=== PATIENT | female | born 1985 | race Caucasian/White ===

== ENCOUNTER 2016-12-23 16:32 | Emergency (ER) | payer SELFPAY ==
--- NOTE | 2016-12-23 18:33 | ED ---
Lower Extremity - HPI Summary HPI Summary: Patient with a history of PFS with a CC of left knee "pop" on Monday with tingling/numbness and remains with pain. She has had similar episodes, but never with knee pain or numbness/tingling which has lasted this long. She feels maybe the patella had moved and it is not placed well on the knee, which is making the feeling of pain. She denies other pain. Patient is obese and states she has always had "bad knees." Numbness and tingling are located in the foot medially and remains constant. She denies temperature or color changes. - History of Current Complaint Chief Complaint: EDExtremityLower Stated Complaint: LT KNEE INJURY Time Seen by Provider: 12/23/16 17:52 Hx Obtained From: Patient Mechanism Of Injury: Twisted Onset of Pain: Immediate Onset/Duration: Days Severity Initially: Moderate Severity Currently: Moderate Pain Intensity: 4 Pain Scale Used: 0-10 Numeric Timing: Constant Location: Is Discrete @ - medial and lateral left knee pain Character Of Pain: Aching Associated Signs And Symptoms: Positive: Weakness Aggravating Factor(s): Ambulation, Weight Bearing Alleviating Factor(s): Rest Able to Bear Weight: Yes - Risk Factors Gout Risk Factors: Obesity DVT Risk Factors: Negative Septic Arthritis Risk Factor: Negative - Allergies/Home Medications Allergies/Adverse Reactions: Allergies Allergy/AdvReac Type Severity Reaction Status Date / Time Erythromycin [From Pediazole] Allergy Hives Verified 12/23/16 19:17 Penicillins [PCN] Allergy Hives Verified 12/23/16 19:17 Sulfamethoxazole Allergy Hives Verified 12/23/16 19:17 w/Trimethoprim [From Bactrim] Sulfisoxazole Allergy Hives Verified 12/23/16 19:17 [From Pediazole] PMH/Surg Hx/FS Hx/Imm Hx Previously Healthy: Yes - Immunization History Hx Pertussis Vaccination: No Immunizations Up to Date: Yes Infectious Disease History: No Infectious Disease History: Denies: Traveled Outside the [place] in Last 30 Days - Social History Occupation: Employed Full-time Lives: With Family Alcohol Use: Rare Hx Substance Use: No Substance Use Type: Reports: None Hx Tobacco Use: No Smoking Status (MU): Never Smoked Tobacco Do You Chew or Dip Tobacco: No Review of Systems Constitutional: Negative Cardiovascular: Negative Respiratory: Negative Positive: no symptoms reported, see HPI Positive: Arthralgia - left knee pain over medial and lateral aspect, Myalgia Skin: Negative Neurological: Negative Psychological: Normal All Other Systems Reviewed And Are Negative: Yes Physical Exam Triage Information Reviewed: Yes Vital Signs On Initial Exam: Initial Vitals Temp Pulse Resp BP Pulse Ox 97.8 F 72 16 129/67 100 12/23/16 16:35 12/23/16 16:35 12/23/16 16:35 12/23/16 16:35 12/23/16 16:35 Vital Signs Reviewed: Yes Appearance: Positive: Well-Appearing, No Pain Distress, Well-Nourished Skin: Positive: Warm, Skin Color Reflects Adequate Perfusion Head/Face: Positive: Normal Head/Face Inspection Neck: Positive: Supple, No Lymphadenopathy Cardiovascular: Positive: Normal, RRR, Pulses are Symmetrical in both Upper and Lower Extremities Musculoskeletal: Positive: Limited @ - flexion and extension, Pain @ - medial, lateral and anterior aspect of knee, Other - no edema. patellar tendon palpation reveals pain, petallar glide does not demonstrate hypermobility, apprehension test does not demonstrate subluxation. anterior drawer negative. Neurological: Positive: Alert, Oriented to Person Place, Time, CN Intact II-III , Facial Symmetry, Speech Normal Psychiatric: Positive: Normal AVPU Assessment: Alert Diagnostics - Vital Signs Vital Signs Temp Pulse Resp BP Pulse Ox 12/23/16 16:38 98.5 F 76 20 129/67 100 12/23/16 16:35 97.8 F 72 16 129/67 100 - Laboratory Lab Statement: Any lab studies that have been ordered have been reviewed, and results considered in the medical decision making process. Lower Extremity Course/Dx - Course Course Of Treatment: Patient sent to xray d/t numbness/tingling and feeling patella out of place. Hx of PFS. Previous subluxation of the knee, but never has felt tingling or pain after incident. Will refer to Dr. Mata for follow up if symptoms persist and possibly physical therapy. Aaron wrapped. Patient is OK for discharge. She is still concerned over the numbness and tingling, but reassured it is d/t injury. No color or temperature changes noted bilaterally and +2 pulses intact. - Diagnoses Differential Diagnosis/HQI/PQRI: Positive: Dislocation, Fracture (Closed), Sprain, Strain Provider Diagnoses: Knee strain Discharge - Discharge Plan Condition: Stable Disposition: HOME Patient Education Materials: Knee Pain (ED) Referrals: Non Staff,Doctor [Primary Care Provider] - Additional Instructions: There is no way to tell if the ligaments are strained or there is any tears. This would require further imaging. Follow up with Dr. Mata if symptoms persist. Ibuprofen 600mg three times daily with meals. Use aaron wrap for stabilization. Remain ambulatory to prevent stiffness. Ice for 2 days, then switch to heat. If you notice any color or temperature changes in the foot, come back to ED.
--- NOTE | 2016-12-23 19:20 | RAD ---
HISTORY: Left knee pain with numbness and tingling COMPARISONS: None VIEWS: 5, Frontal, lateral, axial, and oblique views of the left knee FINDINGS: BONE DENSITY: Normal. BONES: There is no displaced fracture. JOINTS: There is no arthropathy. There is no suprapatellar joint effusion or lipohemarthrosis. ALIGNMENT: There is no dislocation. SOFT TISSUES: Unremarkable. OTHER FINDINGS: None. IMPRESSION: NO ACUTE OSSEOUS INJURY. IF SYMPTOMS PERSIST, RECOMMEND REPEAT IMAGING.
[2016-12-23 19:43] VITALS: BP 114/72
== END 2016-12-23 19:42 | disposition home or self-care (01) ==
LOC: ED 16:32
DX: S83.92XA Sprain of unspecified site of left knee, initial encounter (principal); X58.XXXA Exposure to other specified factors, initial encounter; Y92.9 Unspecified place or not applicable; E66.9 Obesity, unspecified; Z88.0 Allergy status to penicillin; Z88.2 Allergy status to sulfonamides; Z68.44 Body mass index [BMI] 60.0-69.9, adult
CPT/HCPCS: 99281

== ENCOUNTER 2017-08-12 18:29 | Emergency (ER) | payer BC ==
[2017-08-12 18:48] VITALS: BP 121/72
--- NOTE | 2017-08-12 20:54 | UC ---
Damir Byrnes Thomas, scribed for John Riley MD on 08/12/17 at 1905 . UC General HPI - HPI Summary HPI Summary: The patient is a 32 year old female presenting to Urgent Care complaining of numbness and tingling on her right-sided lip, right hand, and right side of the right lower extremity that began five days ago. She describes a sensation of pins and needles. The patient has been in contact with her primary care physician, who suspects that the patients symptoms are a result of a B12 deficiency and the patients metformin. Earlier today, the patient had new- onset right knee tightness and weakness in her right knee. - History of Current Complaint Chief Complaint: UCGeneralIllness Stated Complaint: TINGLING SENSATIONS,MOUTH,ARM,LEGS Time Seen by Provider: 08/12/17 18:57 Hx Obtained From: Patient Hx Last Menstrual Period: 08/12/17 Onset/Duration: Lasting Days - 5, Still Present Timing: Constant Current Severity: Moderate Aggravating: None Alleviating: None Associated Signs & Symptoms: Positive: Weakness, Other - Numbness, tingling - Allergy/Home Medications Allergies/Adverse Reactions: Allergies Allergy/AdvReac Type Severity Reaction Status Date / Time Erythromycin [From Pediazole] Allergy Hives Verified 08/12/17 20:35 Penicillins [PCN] Allergy Hives Verified 08/12/17 20:35 Sulfamethoxazole Allergy Hives Verified 08/12/17 20:35 w/Trimethoprim [From Bactrim] Sulfisoxazole Allergy Hives Verified 08/12/17 20:35 [From Pediazole] Home Medications: Home Medications Cholecalciferol [Vitamin D] 1,000 unit PO EVERY OTHER DAY 08/12/17 [History Confirmed 08/12/17] Cyanocobalamin [Vitamin B-12] 5,000 mcg PO DAILY 08/12/17 [History Confirmed ] Fexofenadine (NF) [Melissa 180 (NF)] 180 mg PO DAILY 08/12/17 [History Confirmed 08/12/17] Levothyroxine TAB* [Synthroid TAB*] 75 mcg PO DAILY 08/12/17 [History Confirmed 08/12/17] Magnesium Oxide (mg Supplement [Magnesium] 500 mg PO DAILY 08/12/17 [History Confirmed 08/12/17] metFORMIN* [Glucophage 500 MG TAB *] 500 mg PO DAILY 08/12/17 [History Confirmed 08/12/17] PMH/Surg Hx/FS Hx/Imm Hx Previously Healthy: No - Asthma; NEGATIVE: DM - Surgical History Surgical History: None - Family History Known Family History: Positive: Hypertension, Other - Skin cancer - Social History Alcohol Use: Occasionally Substance Use Type: None Smoking Status (MU): Never Smoked Tobacco - Immunization History Most Recent Influenza Vaccination: never Review of Systems Constitutional: Other - NEGATIVE: fever Musculoskeletal: Other: Neurological: Weakness, Numbness, Other - Tingling Is Patient Immunocompromised?: No All Other Systems Reviewed And Are Negative: Yes Physical Exam Triage Information Reviewed: Yes Vital Signs: Initial Vital Signs Temp 98.6 F 08/12/17 18:41 Pulse 71 08/12/17 18:41 Resp 18 08/12/17 18:41 BP 121/72 08/12/17 18:41 Pulse Ox 98 08/12/17 18:41 Vital Signs Reviewed: Yes - Additional Comments VITAL SIGNS: Reviewed. GENERAL: Patient is a morbidly obese female who is lying comfortable in the stretcher. Patient is not in any acute respiratory distress. HEAD AND FACE: Normocephalic EYES: PERRLA, EOMI x 2. EARS: Hearing grossly intact. MOUTH: Oropharynx within normal limits. NECK: Supple, trachea is midline, no adenopathy, no JVD, no carotid bruit. CHEST: Symmetric, no tenderness at palpation LUNGS: Clear to auscultation bilaterally. No wheezing or crackles. CVS: Regular rate and rhythm, S1 and S2 present, no murmurs or gallops appreciated. ABDOMEN: Soft, non-tender. Bowel sounds are normal. No abdominal abnormal pulsations. EXTREMITIES: Full ROM in all major joints, no edema, no cyanosis or clubbing. NEURO: Alert and oriented x 3. Speech is normal and follows commands. She has right-sided tingling and numbness. She had one episode of weakness today in her right lower extremity. SKIN: Dry and warm Course/Dx - Course Course Of Treatment: The patient is a 32 year old female presenting to Urgent Care complaining of numbness and tingling on her right-sided lip, right hand, and right side of the right lower extremity that began five days ago. She describes a sensation of pins and needles. The patient has been in contact with her primary care physician, who suspects that the patients symptoms are a result of a B12 deficiency and the patients metformin. Earlier today, the patient had new-onset right knee tightness and weakness in her right knee. She has right-sided tingling and numbness. She had one episode of weakness today in her right lower extremity. I will send the patient to the emergency department for further evaluation to rule out any electrolyte abnormalities since the patient reports similar symptoms in the past due to B-12 deficiency. I have low suspicion for CVA since the patients neurological exam was intact except for decreased sensation on the right side. She will be discharged to travel to the emergency department by private car. - Differential Dx - Multi-Symptom Provider Diagnoses: Neuropathy Discharge - Discharge Plan Condition: Stable Disposition: OTHER Discharge Disposition Comment: Patient instructed to travel to the emergency department by private car. Patient Education Materials: Peripheral Neuropathy (ED) Referrals: Michelle Moreno MD [Primary Care Provider] - Additional Instructions: GO IMMEDIATELY TO THE [facility] EMERGENCY DEPARTMENT. The documentation as recorded by the Damir mcmanus Thomas accurately reflects the service I personally performed and the decisions made by me, John Riley MD.
== END 2017-08-12 19:12 ==
LOC: UCEAST 18:29
DX: G62.9 Polyneuropathy, unspecified (principal); E66.01 Morbid (severe) obesity due to excess calories; Z88.3 Allergy status to other anti-infective agents; Z88.0 Allergy status to penicillin; Z79.84 Long term (current) use of oral hypoglycemic drugs
CPT/HCPCS: 99212; G0463

== ENCOUNTER 2017-08-12 19:28 | Emergency (ER) | payer BC ==
--- NOTE | 2017-08-12 21:45 | RAD ---
Indication: Right chin and hand numbness. Headaches. CT of the brain was performed without IV contrast. Ventricular structures are midline. No midline shift is noted. The extra-axial spaces are unremarkable. There is no evidence of intraluminal mass or hemorrhage. No other high or low density lesions are identified. Mastoid air cells and paranasal sinuses are otherwise unremarkable. IMPRESSION: No intracranial mass or hemorrhage is noted.
--- NOTE | 2017-08-12 21:48 | RAD ---
Indication: Right hand numbness. CT of the cervical spine was obtained in the axial plane. Sagittal and coronal reconstructed images were obtained. Skull base demonstrates no evidence of fracture. Mastoid air cells are well aerated. C1 ring is intact. There is no evidence of fracture. The vertebral bodies appear normal in height and alignment. Evaluation of the soft tissues including the disc spaces and spinal canal is limited due to patient's body habitus. IMPRESSION: No obvious fracture or malalignment is noted although the study is extremely limited due to patient's body habitus. Thyroid nodules are noted.
--- NOTE | 2017-08-12 21:52 | RAD ---
Indication: Back pain. Leg weakness. CT of the lumbar spine was obtained in the axial plane. Sagittal and coronal reconstructed images were obtained. The vertebral bodies appear normal in height and alignment. No compression fracture is noted. There is no evidence of any disc protrusion is noted in the disc spaces. All the intervertebral foramen appear widely patent. At L5-S1 there may be minimal disc protrusion noted. IMPRESSION: No fracture of the lumbar spine. There may BE minimal central broad-based protrusion flattening the thecal sac at the L5-S1 level.
[2017-08-12] MEDS ORDERED: Acetaminophen TAB* 325 MG PO ONE (22:42)
[2017-08-12 23:19] LABS: Hematocrit 38 % (35-47); Hemoglobin 12.7 g/dl (12.0-16.0); Mean Corpuscular HGB Conc 34 g/dl (31-36); Mean Corpuscular Hemoglobin 30 pg (27-31); Mean Corpuscular Volume 88 fL (80-97); Mean Platelet Volume 9 um3 (7.4-10.4); Red Blood Count 4.27 10^6/ul (4.0-5.4); Red Cell Distribution Width 14 % (10.5-15); White Blood Count 9.2 10^3/ul (3.5-10.8)
[2017-08-12 23:34] LABS: Albumin 3.8 g/dL (3.2-5.2); BUN/Creatinine Ratio 21.7 (8-20); C Reactive Protein 14.3 mg/L (< 5.00); EGFR African American 128.5 (>60); EGFR Non-African American 99.9 (>60); Potassium 3.9 mmol/L (3.5-5.0); Total Bilirubin 0.2 mg/dL (0.2-1.0); Total Protein 6.8 g/dL (6.4-8.9)
[2017-08-13 00:12] LABS: Erythrocyte Sed Rate 34 mm/Hr (0-14)
--- NOTE | 2017-08-13 00:17 | ED ---
Jamar Byrnes Natalie, scribed for Michael Meadows MD on 08/12/17 at 205 . Neurological HPI - HPI Summary HPI Summary: The pt is a 32 y/o F presenting to the ED c/o tingling in body onset 5 days ago. The tingling is in right lip, right hand/fingers, entire right and lower left lower extremities. She called her PCP, Michelle Moreno, who said pt may not be absorbing her B12 supplement. The patient also had right knee tightness this morning while walking upstairs, where he knee felt like it was buckling. About 30 minutes later, the pain started in her right knee. The pain is aggravated by nothing and is alleviated by nothing. 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 Pt additionally c/o migraine, right LE weakness, and limping on right LE. Pt denies sore throat and back pain. The patient takes Vitamin D supplement, Magnesium supplement, B12 supplement, control, Melissa, Levothyroxine, Metformin, Symbicort, and Ventolin. - History of Current Complaint Chief Complaint: EDNeurologicalDeficit Stated Complaint: RIGHT SIDED TINGLING, WEAKNESS/PAIN Time Seen by Provider: 08/12/17 20:27 Hx Obtained From: Patient Hx Last Menstrual Period: 08/12/17 Onset/Duration: Sudden Onset, Started days ago Timing: Constant Pain Intensity: 6 Pain Scale Used: 0-10 Numeric Character: Numbness/Tingling - in right lip, entire RLE, LLE, right hand Aggravating: Nothing Alleviating: Nothing Associated Signs and Symptoms: Positive: Negative - NEGATIVE: sore throat, Unsteady Gait, Headache, Weakness. Negative: Pain - POSITIVE: right knee pain; NEGATIVE: back pain - Allergy/Home Medications Allergies/Adverse Reactions: Allergies Allergy/AdvReac Type Severity Reaction Status Date / Time Erythromycin [From Pediazole] Allergy Hives Verified 08/12/17 20:35 Penicillins [PCN] Allergy Hives Verified 08/12/17 20:35 Sulfamethoxazole Allergy Hives Verified 08/12/17 20:35 w/Trimethoprim [From Bactrim] Sulfisoxazole Allergy Hives Verified 08/12/17 20:35 [From Pediazole] PMH/Surg Hx/FS Hx/Imm Hx Previously Healthy: No Endocrine/Hematology History: Reports: Hx Diabetes - pre-diabetic, Hx Thyroid Disease Opthamlomology History: Denies: Hx Legally Blind EENT History: Denies: Hx Deafness - Immunization History Date of Tetanus Vaccine: unk Date of Influenza Vaccine: unk Infectious Disease History: No Infectious Disease History: Denies: Traveled Outside the [place] in Last 30 Days - Family History Known Family History: Positive: Hypertension, Diabetes - Social History Alcohol Use: Occasionally Hx Substance Use: No Substance Use Type: Reports: None Hx Tobacco Use: No Smoking Status (MU): Never Smoked Tobacco Review of Systems Negative: Sore Throat Positive: Other - NEGATIVE: back pain Neurological: Other - tingling in right lip, right hand, RLE, LLE Positive: Headache, Weakness All Other Systems Reviewed And Are Negative: Yes Physical Exam Triage Information Reviewed: Yes Vital Signs On Initial Exam: Initial Vitals Temp Pulse Resp BP Pulse Ox 97.3 F 73 18 133/70 98 08/12/17 19:31 08/12/17 19:31 08/12/17 19:31 08/12/17 19:31 08/12/17 19:31 Vital Signs Reviewed: Yes Appearance: Positive: Well-Appearing, No Pain Distress Skin: Positive: Warm, Skin Color Reflects Adequate Perfusion, Dry Head/Face: Positive: Normal Head/Face Inspection Eyes: Positive: EOMI, KEVEN ENT: Positive: Normal ENT inspection Respiratory/Lung Sounds: Positive: Clear to Auscultation, Breath Sounds Present Cardiovascular: Positive: RRR Abdomen Description: Positive: Nontender, Soft Bowel Sounds: Positive: Present Musculoskeletal: Positive: Normal, Strength/ROM Intact - no decreased stregnth in upper or lower extremities found on exam, Other - back and neck are nontender to palpitation Neurological: Positive: Normal, Alert, Oriented to Person Place, Time, Other - reported decreased sensation in right lateral thigh, lower leg below knee, right hand Psychiatric: Positive: Affect/Mood Appropriate - [place] Coma Scale Coma Scale Total: 15 Diagnostics - Vital Signs Vital Signs Temp Pulse Resp BP Pulse Ox 08/12/17 19:31 97.3 F 73 18 133/70 98 - Laboratory Lab Results: Lab Results 08/12/17 08/12/17 08/12/17 Range/Units 22:42 22:42 22:42 WBC 9.2 (3.5-10.8) 10^3/ul RBC 4.27 (4.0-5.4) 10^6/ul Hgb 12.7 (12.0-16.0) g/dl Hct 38 (35-47) % MCV 88 (80-97) fL MCH 30 (27-31) pg MCHC 34 (31-36) g/dl RDW 14 (10.5-15) % Plt Count 283 (150-450) 10^3/ul MPV 9 (7.4-10.4) um3 Neut % (Auto) 53.6 (38-83) % Lymph % (Auto) 35.6 (25-47) % Alexander % (Auto) 6.2 (1-9) % Eos % (Auto) 3.9 (0-6) % Baso % (Auto) 0.7 (0-2) % Absolute Neuts (auto) 4.9 (1.5-7.7) 10^3/ul Absolute Lymphs (auto) 3.3 (1.0-4.8) 10^3/ul Absolute Monos (auto) 0.6 (0-0.8) 10^3/ul Absolute Eos (auto) 0.4 (0-0.6) 10^3/ul Absolute Basos (auto) 0.1 (0-0.2) 10^3/ul Absolute Nucleated RBC 0 10^3/ul Nucleated RBC % 0 ESR 34 H (0-14) mm/Hr INR (Anticoag Therapy) 0.92 (0.77-1.02) APTT 27.5 (26.0-36.3) seconds Sodium 136 (133-145) mmol/L Potassium 3.9 (3.5-5.0) mmol/L Chloride 105 (101-111) mmol/L Carbon Dioxide 24 (22-32) mmol/L Anion Gap 7 (2-11) mmol/L BUN 15 (6-24) mg/dL Creatinine 0.69 (0.51-0.95) mg/dL Est GFR ( Amer) 128.5 (>60) Est GFR (Non-Af Amer) 99.9 (>60) BUN/Creatinine Ratio 21.7 H (8-20) Glucose 94 (70-100) mg/dL Calcium 9.0 (8.6-10.3) mg/dL Total Bilirubin 0.20 (0.2-1.0) mg/dL AST 11 L (13-39) U/L ALT 10 (7-52) U/L Alkaline Phosphatase 62 (34-104) U/L C-Reactive Protein 14.30 H (< 5.00) mg/L Total Protein 6.8 (6.4-8.9) g/dL Albumin 3.8 (3.2-5.2) g/dL Globulin 3.0 (2-4) g/dL Albumin/Globulin Ratio 1.3 (1-3) Beta HCG, Quant 0.84 mIU/mL Result Diagrams: 08/12/17 22:42 08/12/17 22:42 Lab Statement: Any lab studies that have been ordered have been reviewed, and results considered in the medical decision making process. - CT Brain CT CT Interpretation: No Acute Changes - No intracranial mass or hemorrhage is noted. ED physician has reviewed this report. CT Interpretation Completed By: Radiologist Cervical Spine CT CT Interpretation: No Acute Changes CT Interpretation Completed By: Radiologist - No obvious fracture or malalignment is noted although the study is extremely limited due to patient's body habitus. Thyroid nodules are noted. ED physician has reviewed this report. Lumbar Spine CT CT Interpretation: No Acute Changes - No fracture of the lumbar spine. There may BE minimal central broad-based protrusion flattening the thecal sac at the L5-S1 level. ED physician has reviewed this report. Course/Dx - Course Course Of Treatment: BP noted and advised to follow up with PCP. Allergies noted. Medications reviewed. NO FOCAL WEAKNESS ON EXAM. DISCUSSED WITH NEUROLOGY, DR MOSQUEDA. THE PLAN IS EVALUATE WITH CT AND OBTAIN LABS NOW AND. F /U WITH PMD/NEUROLOGY ON 08/15/17 FOR PROBABLE OUT PATIENT MRI. RETURN TO ED IF WORSE/NEUROLOGIC DEFICIT. MAY REQUIRE MRI URGENTLY IF SX WORSEN. - Diagnoses Provider Diagnoses: Paresthesia, Right knee pain Discharge - Discharge Plan Condition: Stable Disposition: HOME Patient Education Materials: Paresthesia (ED), Knee Pain (ED) Forms: *Work Release Referrals: Michelle Moreno MD [Primary Care Provider] - Additional Instructions: FOLLOW UP WITH YOUR PRIMARY CARE DOCTOR AND NEUROLOGY, DR MOSQUEDA. RETURN TO THE EMERGENCY DEPARTMENT FOR ANY WORSENING OF YOUR CONDITION; WEAKNESS , NUMBNESS, DIFFICULTY CONTROLLING BOWEL OR BLADDER OR QUESTIONS OR CONCERNS. The documentation as recorded by the Jamar mcmanus Natalie accurately reflects the service I personally performed and the decisions made by me, Michael Meadows MD.
[2017-08-13 01:03] VITALS: BP 137/67
== END 2017-08-13 00:50 | disposition home or self-care (01) ==
LOC: ED 19:28
DX: R20.2 Paresthesia of skin (principal); M25.561 Pain in right knee; Z88.3 Allergy status to other anti-infective agents; Z88.0 Allergy status to penicillin; Z88.2 Allergy status to sulfonamides
CPT/HCPCS: 36415; 70450; 72125; 72131; 80053; 84702; 85025; 85610; 85652; 85730; 86038; 86140; 86618; 99282; A9270-GY

== ENCOUNTER 2018-01-23 15:48 | Emergency (ER) | payer BC ==
[2018-01-23 17:10] LABS: ABS Basophils 0.1 10^3/ul (0-0.2); ABS Eosinophils 0.3 10^3/ul (0-0.6); ABS Lymphocytes 2.7 10^3/ul (1.0-4.8); ABS Monocytes 0.5 10^3/ul (0-0.8); ABS Neutrophils 7.4 10^3/ul (1.5-7.7); ABS Nucleated RBC 0 10^3/ul; Eosinophil % 2.3 % (0-6); Hematocrit 38 % (35-47); Hemoglobin 12.9 g/dl (12.0-16.0); Lymphocyte % 24.3 % (25-47); Mean Corpuscular HGB Conc 34 g/dl (31-36); Mean Corpuscular Hemoglobin 30 pg (27-31); Mean Corpuscular Volume 88 fL (80-97); Mean Platelet Volume 8.5 um3 (7.4-10.4); Nucleated Red Blood Cells % 0; Platelet Count 265 10^3/ul (150-450); Red Blood Count 4.33 10^6/ul (4.0-5.4); Red Cell Distribution Width 14 % (10.5-15); White Blood Count 10.9 10^3/ul (3.5-10.8)
[2018-01-23 17:27] LABS: EGFR Non-African American 96.7 (>60)
--- NOTE | 2018-01-23 17:29 | RAD ---
Indication: Chest pain. 2 views of the chest including dual energy PA views demonstrates no mediastinal shift. Heart is of normal size and configuration. Lung meza are clear. IMPRESSION: No active cardiopulmonary disease is noted.
[2018-01-23] MEDS ORDERED: Iodixanol* (CONTRAST) 320 MG/ML 100 ML SDV IV ONE (18:31)
--- NOTE | 2018-01-23 20:12 | RAD ---
Indication: Chest pain, shortness of breath. Contrast: Administered 96.0 ml of VISIPAQUE 320 mg/ml CTA of the chest was performed after IV contrast administration. Coronal and sagittal reconstructed images were obtained. The pulmonary arterial tree is well opacified. No evidence of filling defect is noted to suggest pulmonary embolus. The thoracic aorta demonstrates no evidence of thoracic aortic dissection. No aneurysmal dilatation is noted. No significant mediastinal or hilar adenopathy is noted. Inferior thyroid lobes are unremarkable. The trachea and major bronchi appear patent. There is some scarring in the lingula. No alveolar consolidation is noted. No pleural fluid is identified. The visualized abdominal organs are grossly unremarkable. IMPRESSION: No evidence of pulmonary embolus is noted. No evidence of thoracic aortic dissection is noted. No pulmonary nodules are identified.
[2018-01-23] MEDS ORDERED: Ketorolac INJ* 30 MG/ML 1 ML VIAL IV PUSH ONE (20:20)
[2018-01-23 20:45] VITALS: BP 152/82
--- NOTE | 2018-01-25 11:49 | ED ---
Kai Byrnes Angela, scribed for John Riley MD on 01/23/18 at 1802 . HPI Chest Pain - HPI Summary HPI Summary: This pt is a 32 y/o female presenting to [facility] c/o mid sternal chest pain since 06:00 this morning. Pt reports her pain is worse with lying down and taking deep breaths. She describes her pain as a sharp stabbing pain. Pt notes her pain has worsened since early this morning. Denies SOB, nausea, vomiting, dizziness. Pt notes she has had this pain in the past, 3 weeks ago, that was intermittent for 2 days but then resolved. She thought it was just anxiety. PMhx includes PCOS, asthma, anxiety. Pt is not on any oral contraceptive pills. - History of Current Complaint Chief Complaint: EDChestWallPain Time Seen by Provider: 01/23/18 17:53 Hx Obtained From: Patient Hx Last Menstrual Period: 08/12/17 Onset/Duration: Started Hours Ago, Still Present Timing: Lasting Hours Current Severity: Moderate Pain Intensity: 8 Chest Pain Location: Mid Sternal Chest Pain Radiates: No Character: Sharp/Stabbing Aggravating Factor(s): Deep Breaths, Recumbent Position Alleviating Factor(s): Nothing Associated Signs and Symptoms: Positive: Chest Pain. Negative: Dizziness, Shortness of Breath, Fever, Nausea, Vomiting - Allergy/Home Medications Allergies/Adverse Reactions: Allergies Allergy/AdvReac Type Severity Reaction Status Date / Time Penicillins Allergy Hives Verified 01/23/18 15:53 Sulfa (Sulfonamide Allergy Hives Verified 01/23/18 15:53 Antibiotics) sulfamethoxazole Allergy Hives Verified 01/23/18 15:53 [From Bactrim] trimethoprim [From Bactrim] Allergy Hives Verified 01/23/18 15:53 Home Medications: Home Medications Albuterol HFA INHALER* [Ventolin HFA Inhaler*] 2 puff INH Q4H PRN 01/23/18 [ History Confirmed 01/23/18] Budesonide/Formote 160/4.5(NF) [Symbicort 160/4.5 (NF)] 1 puff INH BID PRN 01/23 [History Confirmed 01/23/18] Cholecalciferol (Vitamin D3) [Vitamin D3] 1,000 unit PO MOTUWETHFR 01/23/18 [ History Confirmed 01/23/18] Cyanocobalamin TAB* [Vitamin B12 TAB*] 1,000 mcg PO DAILY 01/23/18 [History Confirmed 01/23/18] Levothyroxine TAB* [Synthroid TAB*] 25 mcg PO DAILY 01/23/18 [History Confirmed 01/23/18] Magnesium Oxide TAB* [MagOx 400 TAB*] 400 mg PO DAILY 01/23/18 [History Confirmed 01/23/18] metFORMIN* [Glucophage 500 MG TAB *] 500 mg PO BID 01/23/18 [History Confirmed 01/23/18] PMH/Surg Hx/FS Hx/Imm Hx Endocrine/Hematology History: Reports: Hx Diabetes - pre-diabetic, Hx Thyroid Disease History: Reports: Other Problems/Disorders - PCOS Sensory History: Denies: Hx Legally Blind, Hx Deafness Opthamlomology History: Denies: Hx Legally Blind Psychiatric History: Reports: Hx Anxiety - Immunization History Date of Tetanus Vaccine: unk Date of Influenza Vaccine: unk Infectious Disease History: No Infectious Disease History: Denies: Traveled Outside the [place] in Last 30 Days - Family History Known Family History: Positive: Hypertension, Diabetes - Social History Alcohol Use: Occasionally Hx Substance Use: No Substance Use Type: Reports: None Hx Tobacco Use: No Smoking Status (MU): Never Smoked Tobacco Review of Systems Negative: Fever, Chills Positive: Chest Pain Negative: Shortness Of Breath Negative: Vomiting, Nausea Neurological: Other - NEG: dizziness All Other Systems Reviewed And Are Negative: Yes Physical Exam - Summary Physical Exam Summary: VITAL SIGNS: Reviewed. GENERAL: Patient is an obese female who is lying comfortable in the stretcher. Patient is not in any acute respiratory distress. HEAD AND FACE: No signs of trauma. No ecchymosis, hematomas or skull depressions. No sinus tenderness. EYES: PERRLA, EOMI x 2, No injected conjunctiva, no nystagmus. EARS: Hearing grossly intact. Ear canals and tympanic membranes are within normal limits. MOUTH: Oropharynx within normal limits. NECK: Supple, trachea is midline, no adenopathy, no JVD, no carotid bruit, no c- spine tenderness, neck with full ROM. CHEST: Symmetric, no tenderness at palpation LUNGS: Clear to auscultation bilaterally. No wheezing or crackles. CVS: Regular rate and rhythm, S1 and S2 present, no murmurs or gallops appreciated. ABDOMEN: Soft, non-tender. No signs of distention. No rebound no guarding, and no masses palpated. Bowel sounds are normal. EXTREMITIES: FROM in all major joints, no edema, no cyanosis or clubbing. NEURO: Alert and oriented x 3. No acute neurological deficits. Speech is normal and follows commands. SKIN: Dry and warm Triage Information Reviewed: Yes Vital Signs On Initial Exam: Initial Vitals Temp Pulse Resp BP Pulse Ox 98.1 F 93 18 131/74 98 01/23/18 15:50 01/23/18 15:50 01/23/18 15:50 01/23/18 15:50 01/23/18 15:50 Vital Signs Reviewed: Yes Diagnostics - Vital Signs Vital Signs Temp Pulse Resp BP Pulse Ox 01/23/18 17:39 84 16 155/79 98 01/23/18 15:50 98.1 F 93 18 131/74 98 - Laboratory Lab Results: Lab Results 01/23/18 01/23/18 Range/Units 17:05 17:05 WBC 10.9 H (3.5-10.8) 10^3/ul RBC 4.33 (4.0-5.4) 10^6/ul Hgb 12.9 (12.0-16.0) g/dl Hct 38 (35-47) % MCV 88 (80-97) fL MCH 30 (27-31) pg MCHC 34 (31-36) g/dl RDW 14 (10.5-15) % Plt Count 265 (150-450) 10^3/ul MPV 8.5 (7.4-10.4) um3 Neut % (Auto) 67.9 (38-83) % Lymph % (Auto) 24.3 L (25-47) % Peach % (Auto) 4.9 (0-7) % Eos % (Auto) 2.3 (0-6) % Baso % (Auto) 0.6 (0-2) % Absolute Neuts (auto) 7.4 (1.5-7.7) 10^3/ul Absolute Lymphs (auto) 2.7 (1.0-4.8) 10^3/ul Absolute Monos (auto) 0.5 (0-0.8) 10^3/ul Absolute Eos (auto) 0.3 (0-0.6) 10^3/ul Absolute Basos (auto) 0.1 (0-0.2) 10^3/ul Absolute Nucleated RBC 0 10^3/ul Nucleated RBC % 0 Sodium 139 (139-145) mmol/L Potassium 4.0 (3.5-5.0) mmol/L Chloride 104 (101-111) mmol/L Carbon Dioxide 26 (22-32) mmol/L Anion Gap 9 (2-11) mmol/L BUN 12 (6-24) mg/dL Creatinine 0.71 (0.51-0.95) mg/dL Est GFR ( Amer) 124.3 (>60) Est GFR (Non-Af Amer) 96.7 (>60) BUN/Creatinine Ratio 16.9 (8-20) Glucose 98 (70-100) mg/dL Calcium 9.2 (8.6-10.3) mg/dL Total Bilirubin 0.40 (0.2-1.0) mg/dL AST 14 (13-39) U/L ALT 12 (7-52) U/L Alkaline Phosphatase 71 (34-104) U/L Troponin I 0.00 (<0.04) ng/mL Total Protein 7.4 (6.4-8.9) g/dL Albumin 4.2 (3.2-5.2) g/dL Globulin 3.2 (2-4) g/dL Albumin/Globulin Ratio 1.3 (1-3) Beta HCG, Quant < 0.60 mIU/mL Result Diagrams: 01/23/18 17:05 01/23/18 17:06 Lab Statement: Any lab studies that have been ordered have been reviewed, and results considered in the medical decision making process. - Radiology Chest XR Xray Interpretation: No Acute Changes - IMPRESSION: No active cardiopulmonary disease is noted. Dr. Riley has reviewed this radiology report. Radiology Interpretation Completed By: Radiologist - CT CTA Chest/Thorax CT Interpretation: No Acute Changes - IMPRESSION: No evidence of pulmonary embolus is noted. No evidence of thoracic aortic dissection is noted. No pulmonary nodules are identified. Dr. Riley has reviewed this radiology report. CT Interpretation Completed By: Radiologist - EKG 17:24 Cardiac Rate: NL - at 70 bpm EKG Rhythm: Sinus Rhythm EKG Interpretation: No ST elevations. Re-Evaluation - Re-Evaluation First Eval Re-Evaluation Time: 20:34 Comment: I reviewed the lab and imaging results with the pt. She will be discharged home. Chest Pain Course/Dx - Course Assessment/Plan: Pt is a 32 y/o female with hx of asthma who presents with mid sternal chest pain since 06:00 this morning. Pt reports her pain is worse with lying down and taking deep breaths. She describes her pain as a sharp stabbing pain. Pt notes her pain has worsened since early this morning. Denies SOB, nausea, vomiting, dizziness. Pt notes she has had this pain in the past, 3 weeks ago, that was intermittent for 2 days but then resolved spontaneously. She thought it was just anxiety. Test results without any significant abnormalities except for D-dimer of 275, therefore I decided to do a CTA chest. EKG is normal sinus rhythm without ST elevations. Chest XR shows no active cardiopulmonary disease. CTA chest reveals no evidence of pulmonary embolus is noted. No evidence of thoracic aortic dissection is noted. No pulmonary nodules are identified. Since the pt does not have any PE and the troponin is negative , I believe the pt does not have acute coronary syndrome or PE. Pt was given Toradol for the musculoskeletal pain and was discharged home with follow up from PCP. I discussed all the findings and test results with the patient. All questions were answered to patient satisfaction. There were no further complaints or concerns. She is instructed to return to the ED for any worsening or new symptoms. Pt is hemodynamically stable, alert and oriented x3. - Diagnoses Provider Diagnoses: Atypical chest pain Discharge - Sign-Out/Discharge Documenting (check all that apply): Discharge/Admit/Transfer - Discharge - Discharge Plan Condition: Stable Disposition: HOME Patient Education Materials: Chest Pain (ED) Referrals: Michelle Moreno MD [Primary Care Provider] - 3 Days Additional Instructions: Please follow up with your primary care provider. RETURN TO THE ED FOR ANY NEW OR WORSENING SYMPTOMS. The documentation as recorded by the Kai mcmanus Angela accurately reflects the service I personally performed and the decisions made by me, John Riley MD.
== END 2018-01-23 20:45 | disposition home or self-care (01) ==
LOC: ED 15:48
DX: R07.89 Other chest pain (principal); J45.909 Unspecified asthma, uncomplicated; R73.03 Prediabetes; E07.9 Disorder of thyroid, unspecified; Z88.0 Allergy status to penicillin; Z88.2 Allergy status to sulfonamides; Z79.84 Long term (current) use of oral hypoglycemic drugs; Z79.899 Other long term (current) drug therapy
CPT/HCPCS: 36415; 71046; 71275; 80053; 84484; 84702; 85025; 85379; 93005; 96374; 99283; J1885; Q9967

== ENCOUNTER 2019-03-08 03:44 | Emergency (ER) | payer BC, OTHER ==
[2019-03-08] MEDS ORDERED: predniSONE TAB* 50 MG PO ONE (04:39)
--- NOTE | 2019-03-08 04:41 | ED ---
Allergic Reaction/Systemic - HPI Summary HPI Summary: This patient is a 33 year old F presenting to [facility] with a chief complaint of itchiness and swelling at her hairline/forehead/back of neck since 03/06/19 at 2000 when she colored her hair. Pt states that her itchiness stopped after showering. The patient rates the pain 0/10 in severity. Symptoms aggravated by nothing. Symptoms alleviated by showering. Patient reports plugged ears. - History of Current Complaint Chief Complaint: EDAllergicReaction Time Seen by Provider: 03/08/19 04:35 Hx Obtained From: Patient Hx Last Menstrual Period: 08/12/17 Onset/Duration: Sudden Onset, Started days ago - 2, Resolved - itchiness stopped after showering Timing: Constant, Lasting Days - 2 Severity Initially: Mild Severity Currently: None Pain Intensity: 0 Pain Scale Used: 0-10 Numeric Character: Swelling Aggravating Factor(s): Nothing Alleviating Factor(s): Other - showering Associated Signs And Symptoms: Positive: Other: - positive - plugged ears, itchiness and swelling at her hairline/forehead/back of neck - Allergies/Home Medications Allergies/Adverse Reactions: Allergies Allergy/AdvReac Type Severity Reaction Status Date / Time erythromycin base Allergy Unknown Hives Verified 03/08/19 04:05 [From Pediazole] sulfisoxazole Allergy Unknown Hives Verified 03/08/19 04:05 [From Pediazole] Penicillins Allergy Hives Verified 03/08/19 03:50 Sulfa (Sulfonamide Allergy Hives Verified 03/08/19 03:50 Antibiotics) sulfamethoxazole Allergy Hives Verified 03/08/19 03:50 [From Bactrim] trimethoprim [From Bactrim] Allergy Hives Verified 03/08/19 03:50 PMH/Surg Hx/FS Hx/Imm Hx Previously Healthy: No Endocrine/Hematology History: Reports: Hx Diabetes - pre-diabetic, Hx Thyroid Disease Cardiovascular History: Denies: Hx Hypertension History: Reports: Other Problems/Disorders - PCOS Denies: Hx Renal Disease Sensory History: Denies: Hx Legally Blind, Hx Deafness Opthamlomology History: Denies: Hx Legally Blind Psychiatric History: Reports: Hx Anxiety - Surgical History Surgical History: None - Immunization History Date of Tetanus Vaccine: unk Date of Influenza Vaccine: unk Infectious Disease History: No Infectious Disease History: Denies: Traveled Outside the [place] in Last 30 Days - Family History Known Family History: Positive: Hypertension, Diabetes - Social History Alcohol Use: Occasionally Hx Substance Use: No Substance Use Type: Reports: None Hx Tobacco Use: No Smoking Status (MU): Never Smoked Tobacco Do You Chew or Dip Tobacco: No Have You Chewed or Dipped Tobacco in the LAST YEAR: No Have You Smoked in the Last Year: No Review of Systems Negative: Fever ENT: Other - positive - "plugged" ears Skin: Other - positive - itchiness and swelling at her hairline/forehead/back of neck All Other Systems Reviewed And Are Negative: Yes Physical Exam - Summary Physical Exam Summary: VITAL SIGNS: Reviewed. GENERAL: Patient is a well-developed and nourished FEMALE who is lying comfortable in the stretcher. Patient is not in any acute respiratory distress. HEAD AND FACE: No signs of trauma. No ecchymosis, hematomas or skull depressions. No sinus tenderness. EYES: PERRLA, EOMI x 2, No injected conjunctiva, no nystagmus. EARS: Hearing grossly intact. Ear canals and tympanic membranes are within normal limits. MOUTH: Oropharynx within normal limits. NECK: Supple, trachea is midline, no adenopathy, no JVD, no carotid bruit, no c- spine tenderness, neck with full ROM CHEST: Symmetric, no tenderness at palpation LUNGS: Clear to auscultation bilaterally. No wheezing or crackles. CVS: Regular rate and rhythm, S1 and S2 present, no murmurs or gallops appreciated. ABDOMEN: Soft, non-tender. No signs of distention. No rebound no guarding, and no masses palpated. Bowel sounds are normal. EXTREMITIES: FROM in all major joints, no edema, no cyanosis or clubbing. NEURO: Alert and oriented x 3. No acute neurological deficits. Speech is normal and follows commands. SKIN: Erythema around hairline front and back. Dry and warm Triage Information Reviewed: Yes Vital Signs On Initial Exam: Initial Vitals Temp Pulse Resp BP Pulse Ox 97.8 F 97 16 132/87 96 03/08/19 03:45 03/08/19 03:45 03/08/19 03:45 03/08/19 03:45 03/08/19 03:45 Vital Signs Reviewed: Yes Diagnostics - Vital Signs Vital Signs Temp Pulse Resp BP Pulse Ox 03/08/19 03:45 97.8 F 97 16 132/87 96 - Laboratory Lab Statement: Any lab studies that have been ordered have been reviewed, and results considered in the medical decision making process. Allergic Reaction Course/Dx - Course Course Of Treatment: This patient is a 33 year old F presenting to [facility] with a chief complaint of itchiness and swelling at her hairline/forehead/back of neck since. 03/06/19 at 2000 when she colored her hair. Pt states that her itchiness stopped after showering. The patient rates the pain 0/10 in severity. Symptoms aggravated by nothing. Symptoms alleviated by showering. Patient reports plugged ears. Physical exam shows erythema around hairline front and back. During ED course, pt was given Deltasone TAB. Dx is local allergic reaction. Pt is agreeable to discharge. Pt was told to follow up with her primary care provider within 1-2 days and to return to the ED for any new or worsening symptoms. - Diagnoses Provider Diagnoses: Allergic reaction Discharge - Sign-Out/Discharge Documenting (check all that apply): Patient Departure - discharge Patient Received Moderate/Deep Sedation with Procedure: No - Discharge Plan Condition: Stable Disposition: HOME Prescriptions: predniSONE TAB* [Deltasone TAB*] 50 mg PO DAILY #3 tab Patient Education Materials: General Allergic Reaction (ED) Referrals: Michelle Moreno MD [Primary Care Provider] - 1 Day Additional Instructions: Follow up with your primary care provider within 1-2 days. Return to the ED for any new or worsening symptoms. - Attestation Statements Document Initiated by Scribe: Yes Documenting Scribe: Simone Cervantes Provider For Whom Wilson is Documenting (Include Credential): Dr. Silvino Martinez MD Scribe Attestation: Simone Byrnes scribed for Dr. Silvino Martinez MD on 03/08/19 at 0446. Status of Scribe Document: Ready
[2019-03-08 04:56] VITALS: BP 147/96
== END 2019-03-08 04:55 | disposition home or self-care (01) ==
LOC: ED 03:44
DX: T78.40XA Allergy, unspecified, initial encounter (principal); X58.XXXA Exposure to other specified factors, initial encounter; Z88.1 Allergy status to other antibiotic agents; Z88.0 Allergy status to penicillin; Z88.2 Allergy status to sulfonamides
CPT/HCPCS: 99282; J7512

== ENCOUNTER 2019-03-08 23:07 | Emergency (ER) | payer BC, OTHER ==
[2019-03-09] MEDS ORDERED: EPINEPHRINE 1 MG/ML 1 ML VIAL IM ONE (00:53)
[2019-03-09] MEDS ORDERED: Famotidine IV* 10 MG/ML 2 ML (20 mg) IV SLOW PU ONE (00:53)
[2019-03-09] MEDS ORDERED: methylPREDNISolone 125 MG* 2 ML VIAL IV ONE (00:53)
--- NOTE | 2019-03-09 00:54 | ED ---
Allergic Reaction/Systemic - HPI Summary HPI Summary: Patient is a 33 y/o F presenting to ED with complaints of periorbital edema bilaterally. Patient was seen at [facility] on 03/08/19, at around 0300/0400 for allergic reaction. She reports that she experienced pruritus and swelling at her hairline/forehead/back of neck after coloring her hair. Patient was discharged to home after medications and was given a prescription for prednisone. Patient reports that periorbital swelling worsened after she was discharged. She states she took a nap after returning home and saw her Sx had worsened when she woke up at 1230. She took 50 mg benadryl, which made her drowsy, and she fell asleep once more. She woke up again at 1900 and saw her Sx worsened once more. She states that the swelling has somewhat spread to her throat and notes some difficulty with swallowing. However, she denies pruritus and SOB. Patient has not taken prednisone yet. Home medications and allergies are reviewed. - History of Current Complaint Chief Complaint: EDAllergicReaction Time Seen by Provider: 03/09/19 00:46 Hx Obtained From: Patient Hx Last Menstrual Period: 08/12/17 Onset/Duration: Started hours ago, Still Present Timing: Constant, Lasting Hours Severity Currently: None - pain denied Pain Intensity: 0 Pain Scale Used: 0-10 Numeric Location: Discrete @ - periorbital area bilaterally Character: Swelling Aggravating Factor(s): Nothing Alleviating Factor(s): Nothing Associated Signs And Symptoms: Positive: Other: - some difficulty swallowing and swelling at throat; no SOB or pruritus. - Allergies/Home Medications Allergies/Adverse Reactions: Allergies Allergy/AdvReac Type Severity Reaction Status Date / Time erythromycin base Allergy Unknown Hives Verified 03/08/19 04:05 [From Pediazole] sulfisoxazole Allergy Unknown Hives Verified 03/08/19 04:05 [From Pediazole] Penicillins Allergy Hives Verified 03/08/19 03:50 Sulfa (Sulfonamide Allergy Hives Verified 03/08/19 03:50 Antibiotics) sulfamethoxazole Allergy Hives Verified 03/08/19 03:50 [From Bactrim] trimethoprim [From Bactrim] Allergy Hives Verified 03/08/19 03:50 PMH/Surg Hx/FS Hx/Imm Hx Endocrine/Hematology History: Reports: Hx Diabetes - pre-diabetic, Hx Thyroid Disease Cardiovascular History: Denies: Hx Hypertension History: Reports: Other Problems/Disorders - PCOS Denies: Hx Renal Disease Sensory History: Denies: Hx Legally Blind, Hx Deafness Opthamlomology History: Denies: Hx Legally Blind Psychiatric History: Reports: Hx Anxiety - Immunization History Date of Tetanus Vaccine: unk Date of Influenza Vaccine: unk Immunizations Up to Date: Yes Infectious Disease History: No Infectious Disease History: Denies: Traveled Outside the [place] in Last 30 Days - Family History Known Family History: Positive: Hypertension, Diabetes - Social History Alcohol Use: Occasionally Hx Substance Use: No Substance Use Type: Reports: None Hx Tobacco Use: No Smoking Status (MU): Never Smoked Tobacco Have You Smoked in the Last Year: No Review of Systems Negative: Shortness Of Breath Positive: Edema - periorbital areas bilaterally Skin: Other - negative - pruritus All Other Systems Reviewed And Are Negative: Yes Physical Exam - Summary Physical Exam Summary: VITAL SIGNS: Reviewed. GENERAL: Patient is a well-developed and nourished female who is lying comfortable in the stretcher. Patient is not in any acute respiratory distress. Voice is normal. HEAD AND FACE: No signs of trauma. No ecchymosis, hematomas or skull depressions. No sinus tenderness. Swelling at periorbital areas bilaterally. EYES: PERRLA, EOMI x 2, No injected conjunctiva, no nystagmus. EARS: Hearing grossly intact. Ear canals and tympanic membranes are within normal limits. MOUTH: Oropharynx within normal limits. NECK: Supple, trachea is midline, no adenopathy, no JVD, no carotid bruit, no c- spine tenderness, neck with full ROM CHEST: Symmetric, no tenderness at palpation LUNGS: Clear to auscultation bilaterally. No wheezing or crackles. CVS: Regular rate and rhythm, S1 and S2 present, no murmurs or gallops appreciated. ABDOMEN: Soft, non-tender. No signs of distention. No rebound no guarding, and no masses palpated. Bowel sounds are normal. EXTREMITIES: FROM in all major joints, no edema, no cyanosis or clubbing. NEURO: Alert and oriented x 3. No acute neurological deficits. Speech is normal and follows commands. SKIN: Dry and warm Triage Information Reviewed: Yes Vital Signs On Initial Exam: Initial Vitals Temp Pulse Resp BP Pulse Ox 98.5 F 86 18 140/82 95 03/08/19 23:15 03/08/19 23:15 03/08/19 23:15 03/08/19 23:15 03/08/19 23:15 Vital Signs Reviewed: Yes Diagnostics - Vital Signs Vital Signs Temp Pulse Resp BP Pulse Ox 03/09/19 00:24 99.3 F 93 18 136/85 98 03/08/19 23:15 98.5 F 86 18 140/82 95 - Laboratory Result Diagrams: 03/09/19 01:06 03/09/19 01:06 Lab Statement: Any lab studies that have been ordered have been reviewed, and results considered in the medical decision making process. Re-Evaluation - Re-Evaluation First Eval Re-Evaluation Time: 03:30 Change: Improved Comment: Patient reports improvment of Sx. Patient will be discharged to home with PCP follow up. Allergic Reaction Course/Dx - Course Course Of Treatment: Patient is a 33 y/o F presenting to ED with complaints of periorbital edema bilaterally. Patient was seen at [facility] on 03/08/19, at around 0300/0400 for allergic reaction. She reports that she experienced pruritus and swelling at her hairline/forehead/back of neck after coloring her hair. Patient was discharged to home after medications and was given a prescription for prednisone. Patient returns to ED today with complaints of worsened periorbital swelling bilaterally. She states that the swelling has somewhat spread to her throat and notes some difficulty with swallowing. Labs showed WBC 12.1, absolute neuts 8.7, glucose 152, CRP 26.95. During ED course, patient received solu-medrol 125 mg IV, Pepcid 20 mg IV, and epinephrine 0.3 mg IM. After medications, patient reported improvment of Sx. She will be discharged to home. Patient is agreeable. - Diagnoses Provider Diagnoses: Allergic reaction Discharge - Sign-Out/Discharge Documenting (check all that apply): Patient Departure - discharge Patient Received Moderate/Deep Sedation with Procedure: No - Discharge Plan Condition: Stable Disposition: HOME Patient Education Materials: General Allergic Reaction (ED) Referrals: Michelle Moreno MD [Primary Care Provider] - 3 Days Additional Instructions: RETURN TO ED FOR ANY NEW OR WORSENING SYMPTOMS. FOLLOW UP WITH YOUR PRIMARY CARE PHYSICIAN WITHIN THREE DAYS. - Attestation Statements Document Initiated by Scribe: Yes Documenting Scribe: JAYLEN MESSINA Provider For Whom Scribe is Documenting (Include Credential): ALLISON ANDERSEN MD Scribe Attestation: I, JAYLEN MESSINA, scribed for ALLISON ANDERSEN MD on 03/09/19 at 0446. Status of Scribe Document: Ready
[2019-03-09 01:11] LABS: ABS Eosinophils 0.2 10^3/ul (0-0.6); ABS Lymphocytes 2.3 10^3/ul (1.0-4.8); ABS Monocytes 0.8 10^3/ul (0-0.8); ABS Neutrophils 8.7 10^3/ul (1.5-7.7); Eosinophil % 1.5 %; Hematocrit 38 % (35-47); Hemoglobin 12.4 g/dL (12.0-16.0); Lymphocyte % 19.3 %; Mean Corpuscular HGB Conc 33 g/dL (31-36); Mean Corpuscular Hemoglobin 29 pg (27-31); Mean Corpuscular Volume 89 fL (80-97); Mean Platelet Volume 8.4 fL (7.4-10.4); Platelet Count 263 10^3/uL (150-450); Red Blood Count 4.28 10^6 /uL (3.70-4.87); Red Cell Distribution Width 14 % (10-15); White Blood Count 12.1 10^3/uL (3.5-10.8)
[2019-03-09 01:33] LABS: Albumin 4.1 g/dL (3.2-5.2); Albumin/Globulin Ratio 1.5 (1-3); BUN/Creatinine Ratio 16.4 (8-20); C Reactive Protein 26.95 mg/L (<8.01); Calcium 9.3 mg/dL (8.6-10.3); EGFR African American 112.5 (>60); Globulin 2.7 g/dL (2-4); Potassium 3.7 mmol/L (3.5-5.0); Total Bilirubin 0.2 mg/dL (0.2-1.0); Total Protein 6.8 g/dL (6.4-8.9)
[2019-03-09 03:56] VITALS: BP 130/84
== END 2019-03-09 03:55 | disposition home or self-care (01) ==
LOC: ED 23:07
DX: T78.40XA Allergy, unspecified, initial encounter (principal); X58.XXXA Exposure to other specified factors, initial encounter; Y92.9 Unspecified place or not applicable; E07.9 Disorder of thyroid, unspecified; Z88.1 Allergy status to other antibiotic agents; Z88.0 Allergy status to penicillin; Z88.2 Allergy status to sulfonamides
CPT/HCPCS: 36415; 80053; 85025; 86140; 96372; 96374; 96375; 99283; J2930

== ENCOUNTER 2019-09-28 17:02 | Emergency (ER) | payer BC, OTHER ==
[2019-09-28 17:45] VITALS: BP 122/73
--- NOTE | 2019-09-28 17:58 | UC ---
Skin Complaint HPI - HPI Summary HPI Summary: 34-year-old female who has multiple bug bites on both arms with 3 of them having some redness. She is unsure of the cause and has checked for bedbugs in her apartment as well as checked her dog and 2 cats for fleas and is found nothing. She states her landlord has treated her apartment 2 times. - History of Current Complaint Chief Complaint: UCBiteInjury Stated Complaint: SKIN COMPLAINT Hx Obtained From: Patient Hx Last Menstrual Period: 09/21/19 ?: No Onset/Duration: Gradual Onset Skin Exposure Onset/Duration: Days Ago Timing: Constant Onset Severity: Mild Current Severity: Mild Pain Intensity: 0 Location: Other Character: Pruritus, Redness - Both arms Aggravating Factor(s): Nothing Alleviating Factor(s): Nothing Associated Signs & Symptoms: Positive: Rash Related History: Insect Bite/Sting - Allergy/Home Medications Allergies/Adverse Reactions: Allergies Allergy/AdvReac Type Severity Reaction Status Date / Time erythromycin base Allergy Unknown Hives Verified 09/28/19 17:45 [From Pediazole] sulfisoxazole Allergy Unknown Hives Verified 09/28/19 17:45 [From Pediazole] Penicillins Allergy Hives Verified 09/28/19 17:45 Sulfa (Sulfonamide Allergy Hives Verified 09/28/19 17:45 Antibiotics) sulfamethoxazole Allergy Hives Verified 09/28/19 17:45 [From Bactrim] trimethoprim [From Bactrim] Allergy Hives Verified 09/28/19 17:45 PMH/Surg Hx/FS Hx/Imm Hx Previously Healthy: Yes - Surgical History Surgical History: None - Family History Known Family History: Positive: Hypertension, Diabetes - Social History Alcohol Use: Rare Substance Use Type: None Smoking Status (MU): Never Smoked Tobacco Have You Smoked in the Last Year: No - Immunization History Most Recent Influenza Vaccination: never Review of Systems All Other Systems Reviewed And Are Negative: Yes Skin: Positive: Rash - Numerous bug bites and both arms. Is Patient Immunocompromised?: No Physical Exam Triage Information Reviewed: Yes Appearance: Well-Appearing, No Pain Distress, Well-Nourished, Obese, Other: - Poor hygiene Vital Signs: Initial Vital Signs Temp 98.1 F 09/28/19 17:42 Pulse 87 09/28/19 17:42 Resp 20 09/28/19 17:42 BP 122/73 09/28/19 17:42 Pulse Ox 100 09/28/19 17:42 Vital Signs Reviewed: Yes Skin: Positive: Rashes - Patient has numerous bug bites on both arms. She has 3 of them that are surrounded by approximately 2.5 cm of redness. No active drainage. They are tender on palpation. Course/Dx - Course Course Of Treatment: The patient can continue Claritin for itching and may also take Benadryl every 6 hours as needed. I advised her to treat all of her pets and contact her landlord again to retreat her apartment. She is to follow-up with her primary care provider as needed. Although she is allergic to penicillin and states she gets a rash I am going to treat her with cephalexin and she was given 1 dose here prior to going home. - Diagnoses Provider Diagnosis: Infected insect bite Discharge ED - Sign-Out/Discharge Documenting (check all that apply): Patient Departure All imaging exams completed and their final reports reviewed: No Studies - Discharge Plan Condition: Good Disposition: HOME Prescriptions: cephALEXin [Keflex] 500 mg PO BID 10 Days #20 capsule Patient Education Materials: Insect Bite or Sting (ED) Referrals: Michelle Moreno MD [Primary Care Provider] - Additional Instructions: Avoid scratching. If you break out in a rash, stop the cephalexin and follow up with your primary care provider, treat all of your animals, Claritin daily for itching. - Billing Disposition and Condition Condition: GOOD Disposition: Home
[2019-09-28] MEDS ORDERED: Cephalexin CAP* 500 MG PO ONE (18:07)
== END 2019-09-28 18:15 | disposition home or self-care (01) ==
LOC: UCCORT 17:02
DX: S60.562A Insect bite (nonvenomous) of left hand, initial encounter (principal); S60.561A Insect bite (nonvenomous) of right hand, initial encounter; Z88.1 Allergy status to other antibiotic agents; Z88.2 Allergy status to sulfonamides; Z88.0 Allergy status to penicillin; W57.XXXA Bitten or stung by nonvenomous insect and other nonvenomous arthropods, initial encounter; Y92.9 Unspecified place or not applicable
CPT/HCPCS: 99212; A9270-GY; G0463